=== PATIENT | female | born 1970 | race Caucasian/White ===

== ENCOUNTER 2018-10-04 07:57 | Emergency (ER) | payer OTHER, SELFPAY ==
[2018-10-04] VITALS (11 sets, daily range): BP systolic 118–163; BP diastolic 69–108; PULSE 88–114; RESP 13–20; O2SAT 93–96; BMI 43.0
--- NOTE | 2018-10-04 08:13 | ED_ITS ---
HPI - Psych General Chief Complaint: Psychiatric Symptoms Stated Complaint: SI Time Seen by Provider: 10/04/18 08:06 Source: patient and EMS Mode of arrival: EMS Limitations: no limitations History of Present Illness HPI Narrative: Patient is a 48-year-old female who presents after taking at least 10 x10 mg tablets of cyclobenzaprine 30-60 minutes ago. She states that she has not slept her right leg is quite painful the whole thing hurts. She denies any back pain or injury. She also has rheumatoid arthritis and osteoarthritis she is in pain all the time. She just wants her pain to end. She has attempted suicide in the past and has spent the night at [facility]. Patient has a boyfriend whom she got to last evening. MD complaint: suicidal ideation and feels depressed Related Data Home Medications Medication Instructions Recorded Confirmed adalimumab [Humira Pen] 40 mg SUBCUT Q2W 10/04/18 10/04/18 albuterol sulfate 2 puff INHALATION Q6H PRN 10/04/18 10/04/18 albuterol sulfate 3 ml CONTINUOUS NEBULIZATION QID 10/04/18 10/04/18 PRN amitriptyline 10 mg PO BEDTIME 10/04/18 10/04/18 amlodipine 10 mg PO DAILY 10/04/18 10/04/18 celecoxib 200 mg PO DAILY 10/04/18 10/04/18 cholecalciferol (vitamin D3) 2,000 unit PO DAILY 10/04/18 10/04/18 [Vitamin D3] duloxetine 60 mg PO DAILY 10/04/18 10/04/18 fluticasone propionate 2 spray INTRANASAL DAILY 10/04/18 10/04/18 folic acid 1 mg PO DAILY 10/04/18 10/04/18 hydrochlorothiazide 25 mg PO DAILY 10/04/18 10/04/18 ipratropium-albuterol 3 ml INHALATION PRN PRN 10/04/18 10/04/18 metformin 500 mg PO BID 10/04/18 10/04/18 mometasone-formoterol [Dulera] 2 puff INHALATION BID 10/04/18 10/04/18 omeprazole 20 mg PO DAILY 10/04/18 10/04/18 Allergies Allergy/AdvReac Type Severity Reaction Status Date / Time acetaminophen [From Vicodin] AdvReac Hives Verified 10/04/18 08:07 clindamycin AdvReac Flushing Verified 10/04/18 08:07 codeine AdvReac Hives Verified 10/04/18 08:07 hydrocodone [From Vicodin] AdvReac Hives Verified 10/04/18 08:07 oxycodone [From Percocet] AdvReac Hives Verified 10/04/18 08:07 Penicillins AdvReac Hives Verified 10/04/18 08:07 sulfamethoxazole AdvReac Verified 10/04/18 08:07 tramadol AdvReac Hives Verified 10/04/18 08:07 tyloxapol AdvReac Verified 10/04/18 08:07 Review of Systems Review of Systems ROS Unobtainable: All systems reviewed & are unremarkable except as noted in HPI and below Constitutional Denies chills, Denies fever(s), Denies lethargy and Reports weakness (Right leg) ENT Ears, Nose, Mouth, and Throat: Denies change in voice, Denies neck pain and Denies sore throat Cardiovascular Denies chest pain, Denies irregular heart rhythm, Denies lightheadedness, Denies palpitations and Denies orthopnea Musculoskeletal Denies neck pain, Reports numbness and Reports tingling Integumentary/Breasts Denies pruritus, Denies erythema, Denies rash and Denies wounds Neurologic Reports numbness, Reports tingling and Reports weakness (Right leg) Psychiatric Reports as per HPI, Reports hopelessness and Reports suicidal ideation Endocrine Denies palpitations [facility] Medical History Fibromyalgia (Acute) Osteoarthritis (Acute) Rheumatoid arthritis (Acute) Exam Initial Vital Signs Initial Vital Signs: Vital Signs Pulse Rate 114 H 10/04/18 07:57 Respiratory Rate 20 10/04/18 07:57 Blood Pressure 159/108 H 10/04/18 07:57 Pulse Oximetry 95 10/04/18 07:57 GENERAL: A tearful upset HEENT: Head atraumatic,EOMI, pupils reactive, face symmetric CARDIOVASCULAR: Regular rate and rhythm without murmurs, rubs or gallops. RESPIRATORY: Breath sounds equal bilaterally, no wheezes rales or rhonchi. ABDOMEN: Soft, nontender. Normoactive bowel sounds all 4 quadrants. No guarding or rebound. BACK: No vertebral tenderness no step-off EXTREMITIES: Normal range of motion, no clubbing or edema. Neurovascularly intact. only able to hold right leg about 20? off the gurney. Peripheral pulses intact. NEUROLOGICAL: Alert and oriented x4.Normal gait and speech. Cranial nerves II through XII grossly intact. SKIN: Warm, dry, no laceration, no petechiae, no rashes or lesions. Course Orders Ordered: ED Orders 10/04/18 08:08 Consult to Die Maker Trim Stat 10/04/18 08:17 Acetaminophen Stat Complete Blood Count AUTO DIFF Stat Comprehensive Metabolic Panel Stat Ethanol (ETOH) Stat Salicylate Stat 10/04/18 09:34 Urine Drug Screen, Rapid Stat Discontinued Medications Sodium Chloride (Normal Saline 0.9%) 1,000 mls @ 1,000 mls/hr IV CONT JONELLE Last Infusion: 10/04/18 11:00 Dose: 0 mls/hr Admin: 10/04/18 08:33 Dose: 1,000 mls/hr Ketorolac Tromethamine (Toradol) 30 mg IV NOW ONE Stop: 10/04/18 10:42 Last Admin: 10/04/18 10:58 Dose: 30 mg Vital Signs - 8 hr 10/04/18 07:57 10/04/18 08:21 10/04/18 08:30 Pulse Rate 114 H 114 H 103 H Respiratory Rate 20 20 18 Blood Pressure 159/108 H 159/108 H Blood Pressure [Left Arm] 118/69 Pulse Oximetry 95 95 93 10/04/18 09:30 10/04/18 10:00 10/04/18 11:00 Pulse Rate 91 H 99 H 98 H Respiratory Rate 15 20 18 Blood Pressure Blood Pressure [Left Arm] 152/101 H 144/86 H 154/98 H Pulse Oximetry 95 96 95 10/04/18 11:30 10/04/18 12:00 10/04/18 12:15 Pulse Rate 93 H 92 H 88 Respiratory Rate 13 16 15 Blood Pressure Blood Pressure [Left Arm] 144/107 H 163/101 H 163/101 H Pulse Oximetry 95 94 94 10/04/18 12:30 10/04/18 13:00 Pulse Rate 89 94 H Respiratory Rate 15 20 Blood Pressure Blood Pressure [Left Arm] 139/94 H 142/101 H Pulse Oximetry 95 94 MDM - Psych Lab Data Attestation: I reviewed the patient's lab results. Result diagrams: 10/04/18 08:17 10/04/18 08:17 Lab Results 10/04/18 10/04/18 10/04/18 Range/Units 08:17 08:17 09:34 WBC 8.0 (4.5-11.0) X10^3/uL RBC 5.71 H (4.0-5.2) X10^6/uL Hgb 17.0 H (12.0-16.0) g/dL Hct 48.8 H (36-46) % MCV 85.4 (80-100) fL MCH 29.8 (26-34) PG MCHC 34.9 (30-36) % RDW 15.5 H (11.6-14.8) % Plt Count 229 (150-400) X10^3/uL Neut % (Auto) 55.0 (50-75) % Lymph % (Auto) 34.1 (25-40) % [place] % (Auto) 7.3 (3-14) % Eos % (Auto) 3.4 (2-4) % Baso % (Auto) 0.2 (0-2) % Neut # (Auto) 4400 (3364-0637) /uL Lymph # (Auto) 2700 (0403-4562) /uL [place] # (Auto) 600 (0-900) /uL Eos # (Auto) 300 (0-450) /uL Baso # (Auto) 0 (0-100) /uL Sodium 138 (137-145) mmol/L Potassium 3.4 (3.4-5.1) mmol/L Chloride 101 (98-107) mmol/L Carbon Dioxide 25 (22-32) mmol/L BUN 17 (7-17) mg/dL Creatinine 1.00 (0.52-1.04) mg/dL Estimated GFR 58.7 L (>60) mL/min BUN/Creatinine Ratio 17.0 (6-22) Glucose 171 H (70-100) mg/dL Calcium 9.6 (8.4-10.2) mg/dL Total Bilirubin 0.7 (0.2-1.3) mg/dL AST 27 (14-36) IU/L ALT 38 (9-52) IU/L Alkaline Phosphatase 85 (38-126) U/L Total Protein 7.9 (6.3-8.2) g/dL Albumin 4.6 (3.5-5.0) g/dL Globulin 3.3 (1.7-4.1) g/dL Albumin/Globulin Ratio 1.4 (1.0-2.8) Salicylates < 1.0 (<20) mg/dL Urine Opiates Screen Negative (Negative) Ur Oxycodone Screen Negative (Negative) Urine Methadone Screen Negative (Negative) Acetaminophen < 10 L (10-30) ug/mL Ur Barbiturates Screen Negative (Negative) U Tricyclic Antidepress Negative (Negative) Ur Phencyclidine Scrn Negative (Negative) Ur Amphetamines Screen Negative (Negative) U Methamphetamines Scrn Negative (Negative) Ur MDMA Scrn (Ecstasy) Negative (Negative) U Benzodiazepines Scrn Negative (Negative) Urine Cocaine Screen Negative (Negative) U Marijuana (THC) Screen Negative (Negative) Ethyl Alcohol < 10 mg/dL Urine Dip Bedside Urine Glucose Negative Bedside Urine Bilirubin - Negative Bedside Urine Ketone - Negative Urine Specific [facility] 1.020 Bedside Urine Occult Blood - Negative Bedside Urine pH 6 Bedside Urine Protein + 30 Bedside Urine Urobilinogen - Negative Bedside Urine Nitrite - Negative Bedside Urine Leukocytes - Negative Esterase MDM Narrative Medical decision making narrative: Poison Control recommend washing monitoring for 6-8 hours. Social Work has been down to see and evaluate patient. His provide chronic pain support group. Symptoms are really that she wants her pain to go away and she wants to sleep. Patient is able to contract for safety. She has been monitored in the ED for 6 hours. She actually slept she no longer pain. Feels ready and able to go home. Boyfriend is taking her home. Discharge Plan Departure Patient Disposition: Home Clinical Impression: Suicidal ideation Chronic pain Qualifiers: Chronic pain type: chronic pain syndrome Qualified Code(s): G89.4 - Chronic pain syndrome Discharge Date/Time: 10/04/18 14:14 Interventions: ED Discharge Assessment Last Done: 10/04/18 13:58 Instructions: DI for Chronic Pain -- Adult, DI for Suicidal Ideation-Adult Activity Restrictions/Additional Instructions: *You have been diagnosed with chronic pain, suicidal ideation *What to do: CPELLEN, should call you today. Recommend chronic pain support groups. If you are feeling suicidal or having suicidal thoughts: Call: Suicide Hotline: Visit: [facility] Text: 301796 *Continue to take medications as directed *Follow up with your primary care provider in 2-3 days *Return to ER if you should have suicidal ideation, worsening depression any new, worsening or concerning symptoms Prescriptions: No Action amlodipine 10 mg tablet 10 mg PO DAILY RF: 0 folic acid 1 mg tablet 1 mg PO DAILY RF: 0 albuterol sulfate 90 mcg/actuation Hfa Aerosol Inhaler 2 puff INHALATION Q6H PRN (Reason: Wheezing) RF: 0 fluticasone propionate 50 mcg/actuation spray,suspension 2 spray Intranasal DAILY RF: 0 cholecalciferol (vitamin D3) [Vitamin D3] 2,000 unit capsule 2,000 unit PO DAILY RF: 0 Humira Pen 40 mg/0.4 mL pen injector kit 40 mg subcut Q2W RF: 0 celecoxib 200 mg Capsule 200 mg PO DAILY RF: 0 metformin 500 mg Tablet 500 mg PO BID RF: 0 ipratropium-albuterol 0.5 mg-3 mg(2.5 mg base)/3 mL Solution For Nebulization 3 ml Inhalation PRN PRN (Reason: Shortness Of Breath) RF: 0 albuterol sulfate 2.5 mg /3 mL (0.083 %) Solution For Nebulization 3 ml Continuous Nebulization QID PRN (Reason: Shortness Of Breath) RF: 0 amitriptyline 10 mg Tablet 10 mg PO BEDTIME RF: 0 omeprazole 20 mg Capsule,Delayed Release(Dr/Ec) 20 mg PO DAILY RF: 0 hydrochlorothiazide 25 mg Tablet 25 mg PO DAILY RF: 0 duloxetine 30 mg Capsule,Delayed Release(Dr/Ec) 60 mg PO DAILY RF: 0 Dulera 200-5 mcg/actuation Hfa Aerosol Inhaler 2 puff Inhalation BID RF: 0 Referrals: [facility] [Outside]
--- NOTE | 2018-10-04 08:15 | PC.NURSE ---
contact poison controlled. spoke with saad, expect mild sedation, drowsiness, needs labs, tyl, asa,uds. observed for 6-8 hours.
[2018-10-04 08:27] LABS: Add Manual Diff / Slide Review NO; Basophils Absolute Auto 0 /uL (0-100); Basophils Percent Auto 0.2 % (0-2); Eosinophils Absolute Auto 300 /uL (0-450); Eosinophils Percent Auto 3.4 % (2-4); Hematocrit 48.8 % (36-46); Lymphocytes Absolute Auto 2700 /uL (1100-4500); Lymphocytes Percent Auto 34.1 % (25-40); Mean Corpuscular HGB Conc 34.9 % (30-36); Mean Corpuscular Hemoglobin 29.8 PG (26-34); Mean Corpuscular Volume 85.4 fL (80-100); Monocytes Absolute Auto 600 /uL (0-900); Monocytes Percent Auto 7.3 % (3-14); Neutrophils Absolute Auto 4400 /uL (1500-7000); Platelet Count 229 X10^3/uL (150-400); Red Blood Cell Count 5.71 X10^6/uL (4.0-5.2); Red Cell Distribution Width 15.5 % (11.6-14.8)
[2018-10-04] MEDS: SODIUM CHLORIDE 0.9% 1,000 ML 1000 ML IV (08:33)
[2018-10-04 08:36] LABS: Acetaminophen < 10 ug/mL (10-30); Alanine Aminotransferase 38 IU/L (9-52); Albumin 4.6 g/dL (3.5-5.0); Albumin Globulin Ratio 1.4 (1.0-2.8); Alkaline Phosphatase 85 U/L (38-126); Aspartate Aminotransferase 27 IU/L (14-36); Bilirubin Total 0.7 mg/dL (0.2-1.3); Blood Urea Nitrogen 17 mg/dL (7-17); Calcium 9.6 mg/dL (8.4-10.2); Carbon Dioxide 25 mmol/L (22-32); Chloride 101 mmol/L (98-107); Estimated Glomerular Filt Rate 58.7 mL/min (>60); Ethanol (ETOH) < 10 mg/dL; Globulin 3.3 g/dL (1.7-4.1); Glucose 171 mg/dL (70-100); HEMOLYSIS 17 (0-50); Potassium 3.4 mmol/L (3.4-5.1); Sodium 138 mmol/L (137-145); Total Protein 7.9 g/dL (6.3-8.2)
[2018-10-04 08:40] LABS: Salicylate < 1.0 mg/dL (<20)
[2018-10-04 09:45] LABS: Urine Amphetamines Negative (Negative); Urine Barbiturates Negative (Negative); Urine Benzodiazepines Negative (Negative); Urine Cocaine Negative (Negative); Urine MDMA Negative (Negative); Urine Methadone Negative (Negative); Urine Methamphetamines Negative (Negative); Urine Morphine/Opi cutoff 2000 Negative (Negative); Urine Oxycodone Negative (Negative); Urine Phencyclidine Negative (Negative); Urine Tetrahydrocannabinol Negative (Negative); Urine Tricyclic Antidepressant Negative (Negative)
--- NOTE | 2018-10-04 09:53 | PC.NURSE ---
pt reports, previous attempt 5 years ago, with observation at [facility]. pt wanting for her leg not hurting. reports, she called the crisis center, told her to call 911, pt was disappointment and then she took the pills, then her boyfriend called 911. pt reports, not sleeping due to leg pain, and also emotionally with her son, my son is 22 years old and doesnt want to speak to me because of his spouse.
--- NOTE | 2018-10-04 10:20 | PC.NURSE ---
right lower leg pain. elevated and warm blanket provided. family at bs. pt calm and cooperative.
[2018-10-04] MEDS: KETOROLAC 60 MG/2 ML VIAL 30 MG IV (10:58)
--- NOTE | 2018-10-04 12:27 | PC.NURSE ---
poison controlled called back, updated with status, case closed at this time per darrel.
--- NOTE | 2018-10-04 14:03 | CM.SWNOTE ---
Mental Health Assessment Patient is a 48 year old female who was admitted to [facility] ER on 10/04/18 for Suicidal Ideation and attempt. Pt has [employer] PPO for insurance and her PCP is not listed. EMR was reviewed. Per MD, pt presented to the ED after ingesting at least 10 cyclobenzaprine pills that she had left over from a previous prescription. Pt states that she just wanted her physical chronic pain and emotional pain to end. Pt is drowsy from medication sedation and per poison control should be observed for at least 6 hours. SW met bedside with pt and 2 adult Dtrs in ED room 8 and explained role and pt alert and oriented x2 but drowsy and has difficulty keeping her eyes open for part of the discussion and very dry mouth. Pt's speech is slightly slurred but able to participate in a linear discussion. Pt somewhat disheveled but seems typically well groomed. Pt currently denying any suicidal ideation or plan. Pt states she feels that her increased pain, lack of sleep, and argument with her boyfriend were precipitating events that led to her purposefully taking her pills. MH hx: Patient confirms that she has struggled with depression for many years especially since her chronic pain has increased from rhematoid arthritis and osteoarthritis and she has not been sleeping much the past couple weeks. Pt states that she attempted suicide 5 years ago and went to [facility] and was observed overnight and then discharged with her Dtr to go to [facility] in [place] for additional support but that pt and her Dtr did not feel Crisis Center was a good fit for the pt so she stayed in a hotel with her Dtr for another night. No further suicidal attempts over the past 5 years until today. MH tx: Patient states after her first suicidal attempt 5 years ago she enrolled in counseling through [facility] in [place] but that she had 3 sessions and they discharged her and she did not feel that they provided her with any new coping skills. Pt has not been enrolled since that time. CD hx: Patient denies legal: denies Social: Patient confirms that since her prior suicidal attempt, both of her parents have and her 22 year old son is estranged from her which is highly upsetting. Pt has a somewhat tumultuous relationship with her current boyfriend whom she lives with but denies any physical or emotional abuse but states they argue and do not communicate well. Pt's 2 adult Dtrs are supportive and concerned about the pt. Plan: Pt's Dtrs are quite concerned with pt discharging directly home with her boyfriend as they are worried that they may continue arguing and not communicating well and pt will decline in her safety. Pt willing to Contract for Safety and denies current suicidal ideation and is agreeable to community resources. Pt declining Inpt MH hospitalization for stabilization and med management and pt and family do not feel that [facility] will be helpful for the pt at this time due to the milieu. Pt's plan is to return home and go back to work tomorrow and is agreeable to CPIT (Crisis Intervention Intervention Team) meeting with her tonight to safety plan and help pt enroll in community resources like ongoing counseling. GIULIANA provided the CPIT brochure and called [facility] and set up CPIT to call to schedule a home visit. GIULIANA also provided the Living with Chronic Disease/Pain Support Group information and contact as pt states she feels this could be quite helpful. GIULIANA updated MD and RN and made sure family was bedside to get the information for CPIT, Crisis Line, Chronic Pain Support. Patient to be observed for a while longer before cleared for discharge home with community resources. MATTHIEU Castellanos
== END 2018-10-04 14:14 | disposition home or self-care (01) ==
PROVIDERS: Emergency Provider Emergency Medicine
DX: R45.851 Suicidal ideations (principal); G89.4 Chronic pain syndrome
CPT/HCPCS: 36415; 80053; 80305; 80320; 80329; 81003; 85025; 96361; 96374; 99285; G0480; J1885